=== PATIENT | male | born 1995 | race Caucasian/White ===

== ENCOUNTER 2022-04-14 02:01 | Emergency (ER) | payer SELFPAY ==
[2022-04-14 02:36] VITALS: BP 149/92; PULSE 83
== END 2022-04-14 02:55 | disposition home or self-care (01) ==
LOC: JP.ED 02:01
DX: J02.0 Streptococcal pharyngitis (principal); E66.9 Obesity, unspecified; Z68.31 Body mass index [BMI] 31.0-31.9, adult; Z86.16 Personal history of COVID-19
CPT/HCPCS: 87880-QW; 99282; 99283